=== PATIENT | female | born 1990 | race Two or more races ===

== ENCOUNTER 2017-11-01 16:09 | Emergency (ER) | payer MEDICAID ==
[~2017-11-01] VITALS: Ht 162.6 cm; Wt 64.4 kg
[2017-11-01 16:18] VITALS: BP 102/67
[2017-11-01] MEDS ORDERED: Dextrose 5%/Lactated Ringer's 1,000 ML IV STA (16:42)
[2017-11-01 17:04] LABS: BASOPHILS % (AUTO) 1.2 % (0.0-2.0); EOSINOPHILS % (AUTO) 0.2 % (0.0-3.0); HEMATOCRIT 42.2 % (37.0-47.0); HEMOGLOBIN 14.5 G/DL (12.0-16.0); LYMPHOCYTES % (AUTO) 34.5 % (20.0-45.0); MEAN CORPUSCULAR VOLUME 90 FL (80-99); MONOCYTES % (AUTO) 6.2 % (1.0-10.0); NEUTROPHILS % (AUTO) 57.9 % (45.0-75.0); PLATELET COUNT 268 K/UL (150-450); RED BLOOD COUNT 4.68 M/UL (4.20-5.40); RED CELL DISTRIBUTION WIDTH 13.1 % (11.6-14.8); WHITE BLOOD COUNT 4.6 K/UL (4.8-10.8)
[2017-11-01 17:07] LABS: ANION GAP 8 mmol/L (5-15); BLOOD UREA NITROGEN 14 mg/dL (7-18); CALCIUM 9.4 MG/DL (8.5-10.1); CARBON DIOXIDE 24 MMOL/L (21-32); CHLORIDE 106 MMOL/L (98-107); CREATININE 1.3 MG/DL (0.55-1.30); POTASSIUM 3.6 MMOL/L (3.5-5.1); SODIUM 138 MMOL/L (136-145)
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
[2017-11-01 17:23] LABS: ALANINE AMINOTRANSFERASE 26 U/L (12-78); ALBUMIN 4.2 G/DL (3.4-5.0); ALBUMIN/GLOBULIN RATIO 1.1 (1.0-2.7); ALKALINE PHOSPHATASE 37 U/L (46-116); ASPARTATE AMINO TRANSFERASE 24 U/L (15-37); BILIRUBIN,TOTAL 0.5 MG/DL (0.2-1.0)
[2017-11-01] MEDS ORDERED: Ketorolac 30mg Inj IV ONE (18:00)
[2017-11-01 18:05] VITALS: BP 137/96
[2017-11-01] MEDS ORDERED: IBUPROFEN600 MG ORAL (20:26)
[2017-11-01] MEDS ORDERED: ROBAXIN500 MG PO (20:26)
[2017-11-01 20:43] VITALS: BP 93/57
--- NOTE | 2017-11-04 16:35 | Cardiology Report ---
APPROVED REPORT EKG Measurement Heart [id number] Normal sinus rhythm Septal infarct, age undetermined Abnormal ECG
== END 2017-11-01 20:43 | disposition home or self-care (01) ==
LOC: EDBD 16:09 → EMR 17:17
DX: R41.82 Altered mental status, unspecified (principal); R00.0 Tachycardia, unspecified; Z86.69 Personal history of other diseases of the nervous system and sense organs; M54.5 Low back pain
CPT/HCPCS: 36415; 80053; 80307; 81025; 82962; 84484; 85025; 93005; 96361; 96374; 96375; 99284; J1885